=== PATIENT | female | born 1975 | race Caucasian/White ===

== ENCOUNTER → 2019-11-09 | Outpatient (CLI) | payer MEDICAID ==
[~2019-11-09] MED LIST: FERR-89 PO; IOVERSOL 350 MG/ML 150 ML VIAL ONE; SENN8.6T20 PO; SODIUM CHLORIDE 0.9% 100 ML ONE
== END | disposition home or self-care (01) ==
LOC: RADMN 08:37
PROVIDERS: ATTEND Internal Medicine Interventional Cardiology
DX: I51.7 Cardiomegaly (principal); R16.0 Hepatomegaly, not elsewhere classified; J98.11 Atelectasis; K59.00 Constipation, unspecified; M47.815 Spondylosis without myelopathy or radiculopathy, thoracolumbar region; M47.818 Spondylosis without myelopathy or radiculopathy, sacral and sacrococcygeal region
CPT/HCPCS: 71260; 72193; 74160; J7050; Q9967